=== PATIENT | male | born 1940 | race Caucasian/White ===

== ENCOUNTER 2021-04-16 16:29 | Emergency (ER) | payer BC ==
[~2021-04-16] VITALS: Ht 165.1 cm; Wt 68.0 kg
[~2021-04-16 16:29] MED LIST: ADULT LOW DOSE81 MG PO; CENTRUM SILVER1 EAC4 PO; FISH OIL 1,0001 EAC5 PO; KEFLEX500 MG PO; LISINOPRIL5 MG PO; MULTIVITAMINS PO; NITROSTAT0.4 MG SL; PLAVIX 75 MG TA75 MG OR; TOPROL XL50 MG PO; TRIAMTERENE-HC1 EAC1 PO; VITAMIN D31000 UNI2 PO; VITAMINC500 PO; ZOCOR40 MG PO; [UNRECOGNIZED DRUG - REMARK]
[2021-04-16] MEDS ORDERED: DOXYCYCLINE 10100 MG PO (18:36)
[2021-04-16] MEDS ORDERED: APAP W/CODEINE1 TA2 PO (18:39)
[2021-04-16 18:47] VITALS: BP 132/65
== END 2021-04-16 18:48 | disposition home or self-care (01) ==
LOC: M.ERS 16:29
DX: L02.212 Cutaneous abscess of back [any part, except buttock and flank] (principal); E78.00 Pure hypercholesterolemia, unspecified; I10 Essential (primary) hypertension; Z79.2 Long term (current) use of antibiotics; Z79.82 Long term (current) use of aspirin; Z79.899 Other long term (current) drug therapy